=== PATIENT | male | born 1970 | race Caucasian/White ===

== ENCOUNTER 2017-12-27 21:20 | Emergency (ER) | payer OTHER ==
[~2017-12-27] VITALS: Ht 188 cm; Wt 100.1 kg
[2017-12-27] MEDS ORDERED: NORCO 7.5/321 TABLET PO (22:35)
[2017-12-27] MEDS ORDERED: MOTRIN800 MG PO (22:35)
[2017-12-27] MEDS ORDERED: VALIUM5 MG PO (22:35)
[2017-12-27 23:45] VITALS: BP 151/96
== END 2017-12-28 00:13 | disposition home or self-care (01) ==
LOC: EME 21:20
DX: S39.012A Strain of muscle, fascia and tendon of lower back, initial encounter (principal); S30.0XXA Contusion of lower back and pelvis, initial encounter; V49.40XA Driver injured in collision with unspecified motor vehicles in traffic accident, initial encounter; Y92.414 Local residential or business street as the place of occurrence of the external cause
CPT/HCPCS: 72100; 99281; 99284